=== PATIENT | male | born 1995 | race American Indian/Alaskan Native ===

== ENCOUNTER 2018-01-12 15:53 | Outpatient (CLI) | payer OTHER ==
--- NOTE | 2018-01-13 16:02 | XRay Report ---
METASTATIC SURVEY:01/12/18 CLINICAL: Monoclonal gammopathy. FINDINGS: Lateral skull: Negative Cervical spine: Negative Thoracic spine: Negative Lumbar spine: Negative Chest and ribs: Negative Bilateral humerus: Negative Pelvis and hips: Negative Bilateral femur: Negative IMPRESSION: Normal study with no bone lesions identified.
== END 2018-01-12 15:54 | disposition home or self-care (01) ==
LOC: SPVIMAG 15:53
PROVIDERS: ATTEND Internal Medicine Hematology
DX: D47.2 Monoclonal gammopathy (principal)
CPT/HCPCS: 77074